=== PATIENT | female | born 1995 | race Caucasian/White ===

== ENCOUNTER 2017-02-09 16:04 | Emergency (ER) | payer SELFPAY ==
[2017-02-09 16:12] VITALS: BP 95/61
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
== END 2017-02-09 16:32 | disposition home or self-care (01) ==
LOC: UCEAST 16:04
DX: S06.0X9A Concussion with loss of consciousness of unspecified duration, initial encounter (principal); R51 Headache; V49.9XXA Car occupant (driver) (passenger) injured in unspecified traffic accident, initial encounter; Y93.9 Activity, unspecified; Y92.9 Unspecified place or not applicable; E03.9 Hypothyroidism, unspecified
CPT/HCPCS: 99212; G0463